=== PATIENT | male | born 1990 | race Two or more races ===

== ENCOUNTER 2017-08-10 18:37 | Emergency (ER) | payer SELFPAY ==
[~2017-08-10] VITALS: Ht 170.2 cm; Wt 113.4 kg
--- NOTE | 2017-08-10 18:49 | NUR ---
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 ALTERED, REFUSES TO ANSWER QUESTIONS. BS IN FIELD 88.
[2017-08-10] MEDS ORDERED: IV NS 0.9% 1,000 ML BAG IV ONE (19:00)
--- NOTE | 2017-08-10 19:21 | NUR ---
PT TAKEN TO CT SCAN
[2017-08-10] MEDS ORDERED: LORAZEPAM INJ 2 MG/ML VIAL IM ONE (20:30)
[2017-08-10] MEDS ORDERED: HALOPERIDOL LACTATE INJ 5 MG/ML VIAL ONE (20:30)
[2017-08-10] MEDS ORDERED: HALOPERIDOL LACTATE INJ 5 MG/ML VIAL IM ONE (20:30)
[2017-08-10] MEDS ORDERED: LORAZEPAM INJ 2 MG/ML VIAL ONE (20:31)
[2017-08-10] MEDS ORDERED: LORAZEPAM INJ 2 MG/ML VIAL IV ONE (21:00)
[2017-08-11 03:01] VITALS: BP 138/70
--- NOTE | 2017-08-11 03:02 | NUR ---
IV removed. Catheter intact and site benign. Pressure and 4x4 applied to site. No bleeding noted.Patient given written and verbal discharge instructions. Patient verbalizes understanding of instructions. Patient is ambulatory with steady gait. Refuses offer of long term placement. Patient given list of available shelters in surrounding area.
== END 2017-08-11 03:07 | disposition home or self-care (01) ==
LOC: ER 18:42
DX: F16.929 Hallucinogen use, unspecified with intoxication, unspecified (principal); R51 Headache; R79.89 Other specified abnormal findings of blood chemistry
CPT/HCPCS: 36415; 70450; 82962 ×2; 93005; 96361; 96374; 99285; A4606; G0480; J2060; J7030; Z7610; J1630